=== PATIENT | female | born 1970 ===

== ENCOUNTER 2022-02-02 16:57 | Emergency (ER) | payer BC ==
[2022-02-02] MEDS ORDERED: Ketorolac Tromethamine 30 MG/ML VIAL ONE (18:20)
== END 2022-02-02 18:49 | disposition home or self-care (01) ==
LOC: ERS 16:57
DX: M54.50 Low back pain, unspecified (principal); I25.2 Old myocardial infarction; E11.9 Type 2 diabetes mellitus without complications; I10 Essential (primary) hypertension
CPT/HCPCS: 96372; 99283; J1885